=== PATIENT | male | born 1990 ===

== ENCOUNTER 2021-08-25 13:21 | Emergency (ER) | payer OTHER, SELFPAY | END 2021-08-25 16:12 | disposition home or self-care (01) | LOC: ERS 13:21 → EDBD 13:21 → ERS 16:12 | DX: S00.03XA Contusion of scalp, initial encounter (principal); S70.12XA Contusion of left thigh, initial encounter; S70.11XA Contusion of right thigh, initial encounter; V53.6XXA Passenger in pick-up truck or van injured in collision with car, pick-up truck or van in traffic accident, initial encounter | CPT/HCPCS: 70450; 72125; G0390 ==